=== PATIENT | female | born 1960 | race Caucasian/White ===

== ENCOUNTER 2017-01-10 08:37 | Outpatient (CLI) | payer OTHER | END 2017-01-10 14:23 | LOC: D.MAMMO 08:37 | DX: Z12.31 Encounter for screening mammogram for malignant neoplasm of breast (principal) ==

== ENCOUNTER → 2017-02-17 16:52 | Outpatient (CLI) | payer OTHER | END | disposition home or self-care (01) | LOC: D.MAMMO 09:30 | DX: R92.8 Other abnormal and inconclusive findings on diagnostic imaging of breast (principal) ==

== ENCOUNTER → 2017-03-01 11:57 | Outpatient (CLI) | payer OTHER | END | disposition home or self-care (01) | LOC: D.US 11:57 | DX: R92.8 Other abnormal and inconclusive findings on diagnostic imaging of breast (principal) ==

== ENCOUNTER 2017-03-17 05:23 | Day surgery (SDC) | payer BC, OTHER ==
[~2017-03-17] VITALS: Ht 160 cm; Wt 59.9 kg
--- NOTE | ~2017-03-17 | OP ---
PATIENT NAME: YARITZA PINEDA MEDICAL RECORD: [id number] :56 LOCATION:D.OPS ADMISSION DATE: SURGEON: ARTURO MORELAND MD DATE OF OPERATION: 03/17/2017 PREOPERATIVE DIAGNOSES: 1. Left breast invasive ductal carcinoma. 2. Hypertension. 3. Hyperlipidemia. POSTOPERATIVE DIAGNOSES: 1. Left breast invasive ductal carcinoma. 2. Hypertension. 3. Hyperlipidemia. PROCEDURE: Left breast needle localization lumpectomy with sentinel lymph node biopsy. SURGEON: Arturo Moreland MD. REPORT OF PROCEDURE: Preoperatively, the patient underwent needle localization, lymphoscintigraphy, and radiology. The patient's breast and left axilla were prepped and draped in sterile fashion. A transverse incision was made on the medial and inferior aspects of the patient's left breast at about the 8 o'clock position. Electrocautery was used to dissect through the subcutaneous tissue and we pulled the wire through our incision site. The lump of the patient's left breast was removed including the indwelling clip and the complete wire. This specimen was sent off after it was marked appropriately and under mammographic interpretation the clip and the wire were intact with a complete specimen. The wound was irrigated out with sterile water and any bleeding that was found was treated with electrocautery. We then infused a total of 3 mL of 0.25% Marcaine with epinephrine then closed the subcutaneous tissues with interrupted 3-0 Vicryl followed by the skin layer with running subcutaneous 5-0 Monocryl. The patient's left axilla was approached. We found the area where the highest isotope reading was found. A transverse incision was made overlying this and we dissected through the axillary fascia. We pulled up axillary tissue and found a single sentinel lymph node. This reading registered at 1299. This single lymph node was removed and sent off for permanent specimen. We inspected the remainder of the axilla and found no other lymph nodes that met criteria for removal. The lymph node that we removed grossly appeared normal other then it was mildly enlarged. The fascia was then reapproximated with a single interrupted 3-0 Vicryl and the subcutaneous tissues were reapproximated with interrupted 3-0 Vicryl. The skin was infused with 6 mL 0.25% Marcaine with epinephrine and then closed with subcutaneous 5-0 Monocryl. COMPLICATIONS: None. CONDITION: Stable. ANESTHESIA: General endotracheal and local. BLOOD LOSS: Minimal. TRANSINT:[id number] Voice Confirmation ID: [id number] DOCUMENT ID: [id number] OPERATIVE REPORT [id number] YARITZA PINEDA CHRISTIAN MD CC: MASHA CAMPBELL MD and ANGELA NULL MD [id number] DICTATION DATE: 03/17/17 1456 [employer] SUPERVISOR: 03/17/17 2256 [facility] [place] 03/17/17 [place] [id number]
[2017-03-17] MEDS ORDERED: PROMETRIUM200 MG PO (06:36)
[2017-03-17] MEDS ORDERED: HYDROCHLOROTHIA25 MG PO (06:36)
[2017-03-17 06:37] LABS: BASOPHILS 0.5 % (0-2); EOSINOPHILS 1.2 % (0-7); HEMATOCRIT 38.2 % (36.0-48.0); HEMOGLOBIN 12.5 g/dL (12-16); LYMPHOCYTES 45.8 % (15-50); MCH 28.3 pg (26.0-34.0); MCHC 32.7 g/dL (31.0-37.0); MCV 86.6 fL (80.0-100.0); MEAN PLATELET VOLUME 11.8 fL (7.4-10.4); MONOCYTES 9.1 % (2-11); NEUTROPHILS 43.4 % (40-80); PLATELET COUNT 134 10x3/uL (130-400); RBC 4.41 10x6/uL (4.00-5.40); WBC 4.2 10x3/uL (4.8-10.8)
[2017-03-17] MEDS ORDERED: DIM PO (06:37)
[2017-03-17] MEDS ORDERED: [UNRECOGNIZED DRUG - OTHER] PO (06:38)
[2017-03-17] MEDS ORDERED: VITAMIN B COMPL1 TAB PO (06:38)
[2017-03-17 06:45] LABS: APTT 32.5 SECONDS (22.8-39.4); INR 0.99 (0.85-1.17)
[2017-03-17 06:47] VITALS: BP 106/74; Ht 160 cm; Wt 59.9 kg
[2017-03-17 06:47] LABS: ANION GAP 9.8 mmol/L (8-16); CALCIUM 8.8 mg/dL (8.5-10.1); CARBON DIOXIDE 31.5 mmol/L (21.0-32.0); CREATININE - SERUM 1.1 mg/dL (0.6-1.3); POTASSIUM - SERUM 3.3 mmol/L (3.5-5.1)
[2017-03-17] MEDS ORDERED: HYDROCODONE-APA1 TAB PO (14:48)
--- NOTE | 2017-03-17 15:17 | NUR ---
RECEIVED PT FROM STABLE. DAMARIS
--- NOTE | 2017-03-17 18:16 | NUR ---
1530 BACK FROM LEFT BREAST LUMPECTOMY. DRESSINGS X2 LEFT BREAST AND AXILLARY C/D/I.VERY SLEEPY RESP EVEN AND NONLABORED.
--- NOTE | 2017-03-17 18:21 | NUR ---
TOLERATING ICE CHIPS FULL LIQUIDS SERVED. REMAINS VERY SLEEPY.
--- NOTE | 2017-03-17 18:30 | NUR ---
1631 NAUSEA ORDER RECEIVED AND ZOFRAN GIVEN.
--- NOTE | 2017-03-17 19:01 | NUR ---
1700 FEELS BETTER. NAUSEA BETTER.
--- NOTE | 2017-03-17 19:05 | NUR ---
1715 IV DCD CATHETER INTACT. DISCHARGE INSTRUCTIONS GIVEN AND VERBALLY UNDERSTANDS. VERBALLY UNDERSTANDS.
--- NOTE | 2017-03-17 19:06 | NUR ---
1730 TO HOME VIA W/C WITH FAMILY.
== END 2017-03-17 17:30 | disposition home or self-care (01) ==
LOC: D.OPS 05:23 → D.PAN 07:30 → D.OPS 07:30
PROVIDERS: Surgery
DX: C50.912 Malignant neoplasm of unspecified site of left female breast (principal); I10 Essential (primary) hypertension; E78.5 Hyperlipidemia, unspecified; Z01.812 Encounter for preprocedural laboratory examination

== ENCOUNTER → 2017-09-11 19:02 | Outpatient (CLI) | payer OTHER ==
[2017-03-17 06:47] VITALS: BMI 23.4
[~2017-09-11 19:02] MED LIST: DIM PO; HYDROCHLOROTHIA25 MG PO; HYDROCODONE-APA1 TAB PO; PROMETRIUM200 MG PO; VITAMIN B COMPL1 TAB PO; [UNRECOGNIZED DRUG - OTHER] PO
== END | disposition home or self-care (01) ==
LOC: D.MAMMO 08-17 09:30 → D.US 08-17 14:30 → D.MAMMO 15:00
DX: C50.312 Malignant neoplasm of lower-inner quadrant of left female breast (principal)

== ENCOUNTER → 2018-04-05 22:22 | Outpatient (CLI) | payer BC ==
[2017-03-17 06:47] VITALS: BMI 23.4
== END | disposition home or self-care (01) ==
LOC: D.MAMMO 12:00
DX: Z85.3 Personal history of malignant neoplasm of breast (principal)

== ENCOUNTER → 2018-09-13 17:39 | Outpatient (CLI) | payer BC ==
[2017-03-17 06:47] VITALS: BMI 23.4
== END | disposition home or self-care (01) ==
LOC: D.MAMMO 10:00
DX: R92.8 Other abnormal and inconclusive findings on diagnostic imaging of breast (principal)

== ENCOUNTER 2019-03-29 09:00 | Outpatient (CLI) | payer BC ==
[2017-03-17 06:47] VITALS: BMI 23.4
== END 2019-03-29 10:00 | disposition home or self-care (01) ==
LOC: D.MAMMO 09:00
PROVIDERS: ATTEND Surgery
DX: C50.912 Malignant neoplasm of unspecified site of left female breast (principal)

== ENCOUNTER → 2020-04-08 14:36 | Outpatient (CLI) | payer BC ==
[2017-03-17 06:47] VITALS: BMI 23.4
== END | disposition home or self-care (01) ==
LOC: D.MAMMO 14:30
PROVIDERS: ATTEND Internal Medicine Hematology & Oncology
DX: Z12.31 Encounter for screening mammogram for malignant neoplasm of breast (principal)

== ENCOUNTER 2020-04-27 08:00 | Outpatient (CLI) | payer BC ==
[2017-03-17 06:47] VITALS: BMI 23.4
== END 2020-04-27 14:16 | disposition home or self-care (01) ==
LOC: D.MAMMO 08:00
PROVIDERS: ATTEND Internal Medicine Hematology & Oncology
DX: C50.312 Malignant neoplasm of lower-inner quadrant of left female breast (principal); D64.9 Anemia, unspecified; D72.819 Decreased white blood cell count, unspecified